=== PATIENT | male | born 1980 | race Caucasian/White ===

== ENCOUNTER 2017-04-28 15:16 | Emergency (ER) | payer BC ==
[2017-04-28] MEDS ORDERED: Morphine INJ* 4 MG/ML 1 ML CARPUJECT IV ONE ×2 (15:56→16:46)
[2017-04-28] MEDS ORDERED: Ondansetron INJ* 2 MG/ML VIAL IV ONE (15:56)
[2017-04-28] MEDS ORDERED: Iohexol 300* (CONTRAST) 10 ML SDV IV ONE ×2 (15:57→16:09)
[2017-04-28 15:59] LABS: Hematocrit 40 % (42-52); Hemoglobin 13.7 g/dl (14.0-18.0); Mean Corpuscular HGB Conc 35 g/dl (31-36); Mean Corpuscular Hemoglobin 31 pg (27-31); Mean Corpuscular Volume 88 fL (80-94); Mean Platelet Volume 8 um3 (7.4-10.4); Red Cell Distribution Width 13 % (10.5-15); White Blood Count 10.3 10^3/ul (3.5-10.8)
[2017-04-28 16:13] LABS: Albumin 4.4 g/dL (3.2-5.2); BUN/Creatinine Ratio 19.4 (8-20); Calcium 9.1 mg/dL (8.6-10.3); EGFR African American 118.9 (>60); EGFR Non-African American 92.5 (>60); Globulin 2.5 g/dL (2-4); Potassium 3.9 mmol/L (3.5-5.0); Total Bilirubin 0.3 mg/dL (0.2-1.0); Total Protein 6.9 g/dL (6.4-8.9)
--- NOTE | 2017-04-28 16:15 | RAD ---
HISTORY: Trauma, chest pain COMPARISONS: None VIEWS: 1: frontal portable view of the chest at 4:07 PM FINDINGS: LINES AND TUBES: None. CARDIOMEDIASTINAL SILHOUETTE: The cardiomediastinal silhouette is normal for portable technique. PLEURA: The costophrenic angles are sharp. No pleural abnormalities are noted. LUNG PARENCHYMA: The lung volumes are low. The lungs are clear accounting for the phase of respiration. ABDOMEN: The upper abdomen is clear. There is no subphrenic gas. BONES AND SOFT TISSUES: No bone or soft tissue abnormalities are noted. IMPRESSION: LOW LUNG VOLUMES. NO ACTIVE CARDIOPULMONARY DISEASE.
--- NOTE | 2017-04-28 16:44 | RAD ---
HISTORY: Chest pain, back pain, fall COMPARISONS: MRI of the cervical spine dated September 14, 2015 TECHNIQUE: Multiple contiguous axial CT scans were obtained of the cervical spine without intravenous contrast, with coronal and sagittal multiplanar reformations. FINDINGS: BRAIN: The visualized brain is unremarkable CENTRAL CANAL: Evaluation of the central canal is limited on CT technique; however, there is no obvious canalicular mass or epidural hemorrhage. ALIGNMENT: There is a mild levoscoliotic curvature of the spine which may be positional. The alignment is otherwise normal. VERTEBRAL BODIES: The odontoid process is intact. The atlantoaxial intervals are symmetric. The vertebral bodies are normal in attenuation, without fracture. JOINTS: There is no subluxation or dislocation. There is mild uncovertebral and facet hypertrophic change. MUSCULATURE: Unremarkable INTERVERTEBRAL DISCS: There is diffuse loss of intervertebral disc height. AXIAL IMAGES: C2-C3: There is no osseous neural foraminal narrowing or central canal stenosis. C3-C4: There is mild left neural foraminal narrowing secondary to uncovertebral atrophy. There is no osseous central canal stenosis. C4-C5: There is no osseous neural foraminal narrowing or central canal stenosis. C5-C6: There is bilateral uncovertebral hypertrophy. There is moderate bilateral neural foraminal narrowing. There is no osseous central canal stenosis. C6-C7: There is no osseous neural foraminal narrowing or central canal stenosis. C7-T1: There is no osseous neural foraminal narrowing or central canal stenosis. SOFT TISSUES: The visualized soft tissues of the neck are unremarkable. The prevertebral fat stripe is preserved. OTHER: None. IMPRESSION: MILD DEGENERATIVE CHANGES. NO ACUTE OSSEOUS INJURY TO THE CERVICAL SPINE.
[2017-04-28] MEDS ORDERED: Morphine INJ* 4 MG/ML 1 ML CARPUJECT ONE (16:46)
--- NOTE | 2017-04-28 16:56 | RAD ---
HISTORY: Epigastric pain, chest pain, shortness of breath, trauma COMPARISONS: CT of the abdomen and pelvis dated April 10, 2012 TECHNIQUE: Multiple contiguous axial CT scans were obtained of the chest, abdomen, and pelvis after the administration of intravenous contrast. Coronal and sagittal multiplanar reformations are submitted for review.. Oral contrast was not administered. Delayed images were obtained through the abdomen and pelvis. FINDINGS: CHEST NECK AND THYROID: The lower neck and thyroid are unremarkable. CHEST WALL: There is no lower cervical, axillary, or supraclavicular lymphadenopathy by size criteria. HEART AND PERICARDIUM: The heart is unremarkable. AORTA AND PULMONARY VASCULATURE: The aorta and pulmonary vasculature are normal. MEDIASTINUM: There is no mediastinal lymphadenopathy by size criteria. ELI: There is no hilar lymphadenopathy by size criteria. AIRWAY AND ESOPHAGUS: The airway is unremarkable, without endobronchial filling defect. The esophagus is grossly normal. LUNG PARENCHYMA: The lungs are clear. PLEURA: No pleural abnormalities are noted. BONES AND SOFT TISSUES: No bone or soft tissue abnormalities are noted. ABDOMEN/PELVIS: LIVER: The liver measures 20 cm in long axis. The liver is homogeneous in attenuation without perihepatic fluid collection. BILE DUCTS: There is no intrahepatic or extrahepatic biliary dilatation. GALLBLADDER: The gallbladder is normal, without pericholecystic inflammatory change. PANCREAS: The pancreas is normal, without mass or ductal dilatation. SPLEEN: Normal in size and appearance. UPPER GI TRACT: Evaluation of the gastrointestinal tract is limited by incomplete gastric distention. The upper GI tract is unremarkable. SMALL BOWEL \T\ MESENTERY: The small bowel is normal in contour, course, and caliber. There is no obstruction or dilatation. COLON: The colon is normal in contour, course, caliber. There is no pericolonic inflammatory change. ADRENALS: Normal bilaterally. KIDNEYS: The kidneys are normal in shape, size, contour, and axis. There is no hydronephrosis or nephrolithiasis. BLADDER: The bladder is smooth in contour. PELVIC ORGANS: The prostate gland is normal. The seminal vesicles are symmetric. AORTA: The aorta is normal. IVC: Unremarkable LYMPH NODES: There is no lymphadenopathy by size criteria. ABDOMINAL WALL: There is no evidence for abdominal wall hernia. BONES AND SOFT TISSUES: Unremarkable OTHER: There is no free intraperitoneal fluid or free intraperitoneal gas. There is no active arterial sterilization. IMPRESSION: NO ACUTE CT PATHOLOGY OF THE VISUALIZED CHEST, ABDOMEN, OR PELVIS. MILD HEPATOMEGALY.
[2017-04-28] MEDS ORDERED: HYDROmorphone INJ* 1 MG/ML CARPUJECT SYRINGE IV SLOW PU ONE ×2 (17:39→19:32)
[2017-04-28] MEDS ORDERED: HYDROmorphone INJ* 2 MG/ML CARPUJECT SYRINGE IV SLOW PU ONE (18:26)
--- NOTE | 2017-04-28 18:36 | ED ---
Kana Gibson SooYoung, scribed for Apolinar Luna MD on 04/28/17 at 1558 . 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 Pt was on his tractor when it rolled onto its side, so he jumped off. He states he did a "belly flop" and landed on the ground. He was not pinned by the tractor. CP is described as sharp, radiating to in between his shoulder blades, R side worse than L. Associated sx: SOB secondary to CP. Denies head trauma, LOC , abd pain, low back pain, extremity tingling. Aggravating factors: breathing. Neck pain at baseline. Denies cardiac PMHx. Takes hydrocodone. PCP is in [place]. 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 - Mechanism of Injury: Fall Onset/Duration: Started Hours Ago, Traumatic, Still Present Onset of Pain: Immediate, Post Accident, Prior to Arrival Current Severity: Severe Pain Intensity: 10 Pain Scale Used: 0-10 Numeric Location: Chest, Radiates to: - back, shoulder blades Aggravating Factor(s): Movement, Deep Breaths Associated Signs & Symptoms: Positive: SOB, Painful Respirations, Other: - pos: diaphoresis; neg: head trauma, LOC, low back pain, extremity tingling - Allergy/Home Medications Allergies/Adverse Reactions: Allergies Allergy/AdvReac Type Severity Reaction Status Date / Time Penicillins [PCN] Allergy Unknown Unknown Verified 09/09/15 14:35 Reaction Details HAYFEVER Allergy SNEEZE, Uncoded 08/13/15 13:31 CONGESTION PMH/Surg Hx/FS Hx/Imm Hx Previously Healthy: No Endocrine/Hematology History: Denies: Hx Diabetes, Hx Sickle Cell Disease Cardiovascular History: Denies: Hx Hypertension, Hx Pacemaker/ICD Respiratory History: Reports: Hx Asthma - MILD, OCCASSIONAL Sx, NO MEDS GI History: Reports: Hx Gastroesophageal Reflux Disease History: Denies: Hx Dialysis, Hx Renal Disease Musculoskeletal History: Reports: Hx Arthritis - LEFT WRIST Sensory History: Reports: Hx Contacts or Glasses - GLASSES Denies: Hx Hearing Aid Opthamlomology History: Reports: Hx Contacts or Glasses - GLASSES Neurological History: Denies: Other Neuro Impairments/Disorders Psychiatric History: Reports: Hx Anxiety - ON DAILY MEDS, Hx Depression Denies: Hx Panic Disorder - Surgical History Surgery Procedure, Year, and Place: 2010 RIGHT WRIST CARPAL TUNNEL RELEASE, [facility]. 2012 RIGHT WRIST TFC REPAIR X 2, REMOVE GANGLION CYST AND PIECE OF CARTLILAGE, [place], LEFT WRIST SURGERY-09/2012. 03/04 - LEFT WRIST SURGERY Hx Anesthesia Reactions: No Infectious Disease History: Yes Infectious Disease History: Reports: Hx Hepatitis Denies: Traveled Outside the [place] in Last 30 Days - Family History Known Family History: Positive: Other - neg: anasthesia reaction - Social History Occupation: Employed Full-time Lives: With Family Alcohol Use: Occasionally Hx Substance Use: No Substance Use Type: Reports: None Hx Tobacco Use: Yes Smoking Status (MU): Former Smoker Amount Used/How Often: 1/2 PPD X 7-8 YEARS Review of Systems All Other Systems Reviewed And Are Negative: Yes Physical Exam - Summary Physical Exam Summary: Constitutional: Well-developed, Well-nourished, Alert, Cooperative Skin: Warm, Dry HENT: Normocephalic; No Racoons eyes; No battles sign; No abrasion; No contusion ; No hemotympanum; No maxilla facial tenderness or instability; Dentition are smooth; No dental trauma; No trismus Eyes: EOM normal, PERRL Neck: Trachea is midline. No stridor; No JVD; No step off; No posterior cervical spine tenderness Cardio: Rhythm regular, rate normal Heart sounds normal; Intact distal pulses; The pedal pulses are 2+ and symmetric. Radial pulses are 2+ and symmetric. Pulmonary/Chest wall: Diminished breath sounds on R; poor inspiration; Equal chest rise; No flail segment; No rib tenderness; Exquisite sternal tenderness Abd: Soft, Appearance normal. No distension; Exquisite epigastric tenderness; No palpable pulsatile mass; No Cullens sign; No Burt-Turners sign Musculoskeletal: Full ROM and no tenderness at hips, ankles, shoulders, elbows and knees; No joint swelling; No vertebral body tenderness; No paraspinal tenderness; No step off or deformity of the spine; Pelvis is stable to lateral compression and rock Neuro: Alert, Oriented x3, Strength 5/5 all extremities. : No blood at urethral meatus Psych: Mood and affect Normal Triage Information Reviewed: Yes Vital Signs On Initial Exam: Initial Vitals Temp Pulse Resp BP Pulse Ox 96.6 F 59 10 138/86 98 04/28/17 15:27 04/28/17 15:27 04/28/17 15:27 04/28/17 15:27 04/28/17 15:27 Vital Signs Reviewed: Yes Diagnostics - Vital Signs Vital Signs Temp Pulse Resp BP Pulse Ox 04/28/17 15:27 96.6 F 59 10 138/86 98 - Laboratory Lab Results: Lab Results 04/28/17 04/28/17 04/28/17 Range/Units 15:49 15:49 15:49 WBC 10.3 (3.5-10.8) 10^3/ul RBC 4.50 (4.0-5.4) 10^6/ul Hgb 13.7 L (14.0-18.0) g/dl Hct 40 L (42-52) % MCV 88 (80-94) fL MCH 31 (27-31) pg MCHC 35 (31-36) g/dl RDW 13 (10.5-15) % Plt Count 252 (150-450) 10^3/ul MPV 8 (7.4-10.4) um3 Neut % (Auto) 66.2 (38-83) % Lymph % (Auto) 25.4 (25-47) % [place] % (Auto) 7.1 (1-9) % Eos % (Auto) 0.7 (0-6) % Baso % (Auto) 0.6 (0-2) % Absolute Neuts (auto) 6.8 (1.5-7.7) 10^3/ul Absolute Lymphs (auto) 2.6 (1.0-4.8) 10^3/ul Absolute Monos (auto) 0.7 (0-0.8) 10^3/ul Absolute Eos (auto) 0.1 (0-0.6) 10^3/ul Absolute Basos (auto) 0.1 (0-0.2) 10^3/ul Absolute Nucleated RBC 0 10^3/ul Nucleated RBC % 0 Sodium 139 (133-145) mmol/L Potassium 3.9 (3.5-5.0) mmol/L Chloride 105 (101-111) mmol/L Carbon Dioxide 28 (22-32) mmol/L Anion Gap 6 (2-11) mmol/L BUN 18 (6-24) mg/dL Creatinine 0.93 (0.67-1.17) mg/dL Est GFR ( Amer) 118.9 (>60) Est GFR (Non-Af Amer) 92.5 (>60) BUN/Creatinine Ratio 19.4 (8-20) Glucose 90 (70-100) mg/dL Lactic Acid 2.0 (0.5-2.0) mmol/L Calcium 9.1 (8.6-10.3) mg/dL Total Bilirubin 0.30 (0.2-1.0) mg/dL AST 15 (13-39) U/L ALT 17 (7-52) U/L Alkaline Phosphatase 53 (34-104) U/L Total Protein 6.9 (6.4-8.9) g/dL Albumin 4.4 (3.2-5.2) g/dL Globulin 2.5 (2-4) g/dL Albumin/Globulin Ratio 1.8 (1-3) Blood Type Antibody Screen 04/28/17 Range/Units 15:49 WBC (3.5-10.8) 10^3/ul RBC (4.0-5.4) 10^6/ul Hgb (14.0-18.0) g/dl Hct (42-52) % MCV (80-94) fL MCH (27-31) pg MCHC (31-36) g/dl RDW (10.5-15) % Plt Count (150-450) 10^3/ul MPV (7.4-10.4) um3 Neut % (Auto) (38-83) % Lymph % (Auto) (25-47) % [place] % (Auto) (1-9) % Eos % (Auto) (0-6) % Baso % (Auto) (0-2) % Absolute Neuts (auto) (1.5-7.7) 10^3/ul Absolute Lymphs (auto) (1.0-4.8) 10^3/ul Absolute Monos (auto) (0-0.8) 10^3/ul Absolute Eos (auto) (0-0.6) 10^3/ul Absolute Basos (auto) (0-0.2) 10^3/ul Absolute Nucleated RBC 10^3/ul Nucleated RBC % Sodium (133-145) mmol/L Potassium (3.5-5.0) mmol/L Chloride (101-111) mmol/L Carbon Dioxide (22-32) mmol/L Anion Gap (2-11) mmol/L BUN (6-24) mg/dL Creatinine (0.67-1.17) mg/dL Est GFR ( Amer) (>60) Est GFR (Non-Af Amer) (>60) BUN/Creatinine Ratio (8-20) Glucose (70-100) mg/dL Lactic Acid (0.5-2.0) mmol/L Calcium (8.6-10.3) mg/dL Total Bilirubin (0.2-1.0) mg/dL AST (13-39) U/L ALT (7-52) U/L Alkaline Phosphatase (34-104) U/L Total Protein (6.4-8.9) g/dL Albumin (3.2-5.2) g/dL Globulin (2-4) g/dL Albumin/Globulin Ratio (1-3) Blood Type A Positive Antibody Screen Negative Result Diagrams: 04/28/17 15:49 04/28/17 15:49 Lab Statement: Any lab studies that have been ordered have been reviewed, and results considered in the medical decision making process. - Radiology CXR Xray Interpretation: Positive (See Comments) - IMPRESSION: Low lung volumes. No active cardiopulmonary dz. ED physician has reviewed this radiology report and agrees Radiology Interpretation Completed By: Radiologist - CT C-SPINE CT Interpretation: No Acute Changes - IMPRESSION: Mild degenerative changes. No acute osseous injury to C-spine. ED physician has reviewed this radiology report and agrees CT Interpretation Completed By: Radiologist C/A/P CT CT Interpretation: Positive (See Comments) - IMPRESSION: NO ACUTE CT PATHOLOGY OF THE VISUALIZED CHEST, ABDOMEN, OR PELVIS. MILD HEPATOMEGALY. ED physician has reviewed this radiology report, and consulted with radiologist, and reviewed sagittal images and agreed upon sternal fx present, see consult notes and addendum in meditech. CT Interpretation Completed By: Radiologist - EKG 1656 Cardiac Rate: Bradycardia - 57 bpm EKG Rhythm: Sinus Bradycardia ST Segment: Normal - no STEMI, less than 1mm diffuse ST elevations Re-Evaluation - Re-Evaluation 1 Re-Evaluation Time: 16:54 Change: Unchanged Comment: Discussing imaging results with pt and family. 2 Re-Evaluation Time: 17:38 Change: Worse Comment: Discussing results with pt, and plan to transfer. Pain has returned, is in 9/10 pain, and taking shallow breaths. 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 Pt was on his tractor when it rolled onto its side, so he jumped off. He states he did a "belly flop" and landed on the ground. He was not pinned by the tractor. CP is described as sharp, radiating to in between his shoulder blades, R side worse than L. Associated sx: SOB secondary to CP. Denies head trauma, LOC, abd pain, low back pain, extremity tingling. Aggravating factors: breathing. Neck pain at baseline. Denies cardiac PMHx. Takes hydrocodone. PCP is in [place]. Pt given morphine, zofran, dilauded in ED. Bloodwork is without significant abnormality. Due to pt's sternal fx and diffuse ST elevation, will transfer to [facility] trauma center. - Diagnoses Provider Diagnoses: Sternal fracture, Cardiac contusion - Physician Notifications Discussed Care Of Patient With: Gordo Malik - radiology Time Discussed With Above Provider: 17:33 Instructed by Provider To: Other - Reviewing imaging, agrees with sternal fx. - Critical Care Time Critical Care Time: 30-74 min - 45 minutes Discharge - Discharge Plan Condition: Stable Disposition: TRANS HIGHER LVL OF CARE FAC Discharge Disposition Comment: to [facility] Referrals: Louie Cuevas MD [Primary Care Provider] - Consult Consult: 1750: Consult with Dr. Jaramillo, [facility] Will accept pt for transfer. The documentation as recorded by the Kana dickens SooYoung accurately reflects the service I personally performed and the decisions made by me, Apolinar Luna MD.
[2017-04-28 20:33] VITALS: BP 129/93
[2017-04-28] MEDS ORDERED: HYDROmorphone INJ* 1 MG/ML CARPUJECT SYRINGE ONE (21:54)
== END 2017-04-28 22:00 | disposition short-term general hospital (02) ==
LOC: ED 15:16
DX: S22.22XA Fracture of body of sternum, initial encounter for closed fracture (principal); W30.89XA Contact with other specified agricultural machinery, initial encounter; Y92.9 Unspecified place or not applicable; F41.9 Anxiety disorder, unspecified; J45.909 Unspecified asthma, uncomplicated; F32.9 Major depressive disorder, single episode, unspecified; Z87.891 Personal history of nicotine dependence; S26.91XA Contusion of heart, unspecified with or without hemopericardium, initial encounter; R16.0 Hepatomegaly, not elsewhere classified
CPT/HCPCS: 36415; 71010; 71260; 72125; 74177; 80053; 83605; 85025; 86850; 86900; 86901; 93005; 96374; 96375; 96376; 99285; J1170; J2270; J2405; Q9967

== ENCOUNTER 2019-06-12 11:01 | Observation (INO) | payer BC ==
[~2019-06-12 11:01] MED LIST: Acetaminophen TAB* 325 MG PO ONE; Buffered Lidocaine 1% SYRIN* 1 ML/SYRINGE INTRADERM ONE; Lactated Ringers 1000 ML Bag* 1,000 ML IV SCH; Midazolam* 1 MG/ML 2 ML VIAL (2 MG) ONE; Rocuronium* 10 MG/ML VIAL ONE
[2019-06-12] MEDS ORDERED: Acetaminophen TAB* 325 MG ONE (11:27)
[2019-06-12] MEDS ORDERED: Clindamycin 900 MG/D5W BAG(*) 900 MG/50 ML BAG IVPB ONE (11:28)
[2019-06-12] MEDS ORDERED: Lidocaine 2% PF* 10 ML AMP ONE (11:44)
[2019-06-12] MEDS ORDERED: Propofol* 10 MG/ML 20 ML BTL ONE ×2 (11:44→14:10)
[2019-06-12] MEDS ORDERED: EPINEPHRINE 1 MG/ML 1 ML VIAL ONE (12:10)
[2019-06-12] MEDS ORDERED: Bupivacaine 0.25% EPI 200,000* 30 ML SDV ONE (12:11)
[2019-06-12] MEDS ORDERED: fentaNYL* 50 MCG/ML 5 ML VIAL (250 MCG VIAL) ONE (12:19)
[2019-06-12] MEDS ORDERED: ROPIVACAINE 5 MG/ML 30 ML BTL (0.5%) ONE (12:44)
[2019-06-12] MEDS ORDERED: Neostigmine Methylsulfate* 3 MG/3 ML SYRINGE ONE (14:13)
[2019-06-12] MEDS ORDERED: Ketorolac INJ* 30 MG/ML 1 ML VIAL IV PRN (14:13)
[2019-06-12] MEDS ORDERED: oxyCODONE TAB* 5 MG TAB PO PRN (14:13)
[2019-06-12] MEDS ORDERED: Ondansetron INJ* 2 MG/ML VIAL ONE (14:13)
[2019-06-12] MEDS ORDERED: diPHENhydraMINE IV* 50 MG/ML 1 ml VIAL (BENADRYL) IV PRN ×2 (14:13→16:49)
[2019-06-12] MEDS ORDERED: HYDROmorphone INJ1* 1 MG/ML SYRINGE IV PRN (14:13)
[2019-06-12] MEDS ORDERED: PROCHLORPERAZINE INJ 5 MG/ML 2 ML VIAL IV PRN (14:13)
[2019-06-12] MEDS ORDERED: Naloxone* 0.4 MG/ML 1 ML VIAL IV PRN (14:13)
[2019-06-12] MEDS ORDERED: Glycopyrrolate IV* 0.2 MG/ML 1 ML VIAL ONE (14:13)
[2019-06-12] MEDS ORDERED: Albuterol 2.5 MG/3 ML NEB.SOL* (0.083%) INH ONE ×2 (14:33→15:03)
[2019-06-12] MEDS ORDERED: Magnesium Hydroxide LIQ* 30 ML UDC PO PRN (16:49)
[2019-06-12] MEDS ORDERED: traMADol TAB* 50 MG PO PRN (16:49)
[2019-06-12] MEDS ORDERED: Ondansetron INJ* 2 MG/ML VIAL IV PRN (16:49)
[2019-06-12] MEDS ORDERED: Cyclobenzaprine TAB* 10 MG PO PRN (16:49)
[2019-06-12] MEDS ORDERED: Morphine INJ* 2 MG/ML 1 ML SYRINGE (TWO MG - NEW SYRINGE VERSION) IV PRN (16:49)
[2019-06-12] MEDS ORDERED: Ondansetron ODT TAB* 4 MG PO PRN (16:49)
[2019-06-12] MEDS ORDERED: diPHENhydraMINE PO* 25 MG PO PRN (16:49)
[2019-06-12] MEDS ORDERED: Albuterol 2.5 MG/3 ML NEB.SOL* (0.083%) INH PRN (16:59)
[2019-06-12] MEDS ORDERED: Citalopram TAB* 10 MG PO SCH ×2 (18:00→21:00)
[2019-06-12] MEDS: Lactated Ringers 1000 ML Bag* 1,000 ML IV SCH (18:15)
[2019-06-12] MEDS: Magnesium Hydroxide LIQ* 30 ML UDC PO SCH (20:22)
[2019-06-12] MEDS: Docusate CAP* 100 MG PO SCH (20:22)
[2019-06-12] MEDS: oxyCODONE TAB* 5 MG TAB PO PRN (20:23)
--- NOTE | 2019-06-12 20:39 | OP ---
DATE OF OPERATION: 06/12/19 - ROOM #352 DATE OF : 82 SURGEON: Chaz Cam MD [facility]: Miriam Rivers RPA ANESTHESIA: Regional and general endotracheal. PRE-OP DIAGNOSIS: Right shoulder rotator cuff tear. POST-OP DIAGNOSIS: Partial thickness rotator cuff tear. OPERATIVE PROCEDURE: 1. Right shoulder arthroscopy. 2. Debridement. 3. Subacromial decompression. ESTIMATED BLOOD LOSS: Negligible. COMPLICATIONS: None. SUMMARY: Mr. Scott is a 38-year-old male who has had continued troubles with right shoulder pain. He underwent an MRI earlier this year, which showed a near full thickness tear of the distal supraspinatus tendon. He has had continued troubles with more shoulder pain over the past few months and we had previously discussed shoulder arthroscopy. He had done physical therapy, exercising, NSAIDs and even injections and while some of these had given him good short-term relief, he has been having more troubles with the shoulder. Risks of surgery such as infection, scar formation, stiffness, continued pain were some of the risks discussed. He had wished to proceed. DESCRIPTION OF PROCEDURE: The patient had a block placed in the holding area and was brought back to the OR. General endotracheal anesthesia was established. He was then sat up in the beach chair position. Care was taken to make sure that his left elbow was nice and clear so that the cubital tunnel would not be impinged upon. Right shoulder area was prepped and then draped. Portal sites were pre-injected using 0.25% Marcaine with epinephrine and standard posterior portal was made first using an 11 blade. Blunt trocar with the sheath was easily introduced into the shoulder and a camera was introduced into the sheath. Shoulder was allowed to insufflate. On pulling back, glenohumeral joint was nicely visualized. It could be seen we had some very specific damage on the infraspinatus tendon as well as significant fraying along the anterior labrum. Under direct vision using outside-in technique, anterior portal was established and probe was introduced. Labrum was nicely attached and coming over the top side of the humeral head, I did not see any detachment of the rotator cuff. This was probed and pictures were taken. Shaver was introduced and used to gently debride the tear on the infraspinatus tendon as well as all the fraying along the infraspinatus. Underside of the rotator cuff with the synovium was also gently debrided to make sure that there was not another tear that might be missed. Probe was reintroduced and biceps tendon was hooked and delivered and biceps tendon was in pristine condition. Coming down into the pouch, no loose bodies were seen and again he appeared to be in excellent shape. Final pictures were taken and shoulder joint was exited and subacromial space was entered. Thickened, red, inflamed bursa was present. Lateral portal was made and shaver was used in both anterior and lateral portals to clear out the bursa and clean the underside of the acromion. Once I could see from his AC joint to the lateral border of the acromion, jazmine was then used to perform a decompression. Pictures were taken. Trying to switching the scope to the lateral portal and bringing the probe in to again try and look for a tear of the rotator cuff, none was found. All instrumentation was removed and portal sites were closed using 4-0 nylon sutures. Sterile dressing and a sling were applied in the OR. The patient was extubated in the OR and was stable on transfer to the recovery room. DISPOSITION/DISCHARGE SUMMARY: Mr. Scott is a 38-year-old male who just underwent a right shoulder arthroscopy. He tolerated the procedure well. There were no complications. He is still being woken up in the OR and will reach recovery room shortly. Once he can tolerate p.o., his pain well controlled, can void, he will be discharged home. Prescription for [place] will be e-scribed in. He has instructions to keep his dressing clean, dry and intact for the next 3 days, but after that may take his dressing down, cover sutures with bandage, may shower, wash and get it wet, but should not soak it. I would like to see him in the office in 13 days to remove his sutures and make sure he is doing well. If there are any problems or if anything odd should occur, there are instructions to give the office a call. [id number]/[facility] #: [id number] SANDI
[2019-06-12] MEDS: Acetaminophen TAB* 325 MG PO SCH (21:45)
[2019-06-12] MEDS: Ketorolac INJ* 30 MG/ML 1 ML VIAL IV PRN (23:54)
[2019-06-13] MEDS: oxyCODONE TAB* 5 MG TAB PO PRN ×3 (00:42→09:23)
[2019-06-13] MEDS: Lactated Ringers 1000 ML Bag* 1,000 ML IV SCH (04:11)
[2019-06-13] MEDS: Acetaminophen TAB* 325 MG PO SCH (05:07)
[2019-06-13 06:39] LABS: Hematocrit 36 % (42-52); Hemoglobin 12.3 g/dL (14.0-18.0); Mean Platelet Volume 7.9 fL (7.4-10.4); Platelet Count 227 10^3/uL (150-450)
[2019-06-13 07:07] LABS: BUN/Creatinine Ratio 21.9 (8-20); Calcium 8.7 mg/dL (8.6-10.3); EGFR African American 106.6 (>60); EGFR Non-African American 88.1 (>60); Potassium 4.2 mmol/L (3.5-5.0)
[2019-06-13] MEDS ORDERED: Pantoprazole TAB * 40 MG TAB PO SCH (09:00)
[2019-06-13] MEDS ORDERED: Cetirizine* 10 MG TAB PO SCH (09:00)
[2019-06-13] MEDS ORDERED: Vitamin THERAPEUTIC TAB PO SCH (09:00)
[2019-06-13] MEDS: Docusate CAP* 100 MG PO SCH (09:23)
[2019-06-13] MEDS: Magnesium Hydroxide LIQ* 30 ML UDC PO SCH (09:23)
[2019-06-13] MEDS: Ketorolac INJ* 30 MG/ML 1 ML VIAL IV PRN (09:24)
[2019-06-13 11:29] VITALS: BP 147/76
--- NOTE | 2019-06-13 12:09 | DS ---
Orthopedic Discharge Summary - Discharge Summary Date of Admission:06/12/19 Date of Discharge: 06/13/2019 Date of Surgery: 06/12/2019 Attending Orthopedic Provider: Dr. Cam Pre-operative Diagnosis: Right shoulder possible rotator cuff tear vs subacromial bursitis Operative Procedure: Right shoulder arthroscopy, debridement, subacromial decompression Disposition of Patient: home Condition of Patient: good History: SARAH CALERO is a 38 year old M with years of increasingly severe right shoulder pain and weakness. Patient has failed conservative management and has elected to undergo a right shoulder artrhoscopy. Hospital Course: SARAH was admitted to [facility] on 06/12/19. Patient underwent a Right shoulder arthroscopy, debridement, subacromial decompression. He did develop broncospasms in PACU and transfer to the Short Stay Surgical Unit on O2 with continuous monitoring. Post-op day 1: patient was alert and in no acute distress. Dressing was clean, dry and intact. Operative extremity showed fingers with full ROM, sensation intact to light touch distally , DP2+. He was able to be 98% O2 sat on room air for 4 hours without issue. Patient was deemed to be medically and orthopedically stable for discharge. Home Medications Medication Instructions Recorded Confirmed Type Omeprazole 20 mg PO QAM 10/16/12 06/12/19 History Citalopram TAB* [Celexa TAB*] 10 mg PO QPM 02/27/13 06/12/19 History Cetirizine* [ZyrTEC 10 MG TAB*] 10 mg PO QAM 04/03/13 06/12/19 History Ibuprofen [Advil Liqui-Gels] 600 mg PO Q6H PRN 04/03/13 06/12/19 History Multivitamin [Multivitamins] 1 tab PO QAM 06/26/14 06/12/19 History oxyCODONE/Acetamin 5/325 MG* 1 tab PO QPM 06/26/14 06/12/19 History [Percocet 5/325 TAB*] HYDROcodone/ACETAMIN 5-325 MG* 2 tab PO Q8H PRN #56 tab MDD 6 06/12/19 Rx [[place] 5-325 TAB*] Discharge Instructions following Orthopedic Surgery: Activity: * Weight Bearing as tolerated * Continue physical therapy and occupational therapy exercises as shown Wound care: * OK to shower on post-op day 3, no bathing, swimming, or submerging wound. * Use gentle soap, pat dry. Cover with gauze, SANTY wrap or tape. Call Orthopedic office for: * Increased drainage * Redness * Increased pain * Fever Go to ER with shortness of breath or chest pain. Diet: * Regular diet * Increase fluids and fiber to prevent constipation. * Continue to use stool softeners, call office if no bowel motion within 48 hours. Medications See Home Medication List in your packet for medications that you should take after discharge. Pain Control: [place] Dosin/325 mg 1-2 tabs by mouth every 8 hours as needed for pain. Maximum of 10 tabs per day. Ibuprofen 600 mg 3 times a day as needed Please note that [place] contains Tylenol (acetaminophen). Maximum daily dose of Tylenol is 4000 mg from all sources. Antibiotics are required prior to any dental work. FOLLOW UP: Follow up with [[facility]] Within 10-14 days, call for appointment Please call our office with any questions or concerns ([phone])
== END 2019-06-13 12:30 | disposition home or self-care (01) ==
LOC: OR 11:01 → SSU 16:49
PROVIDERS: ADMIT Orthopaedic Surgery; ATTEND Orthopaedic Surgery
DX: M19.011 Primary osteoarthritis, right shoulder (principal); M75.41 Impingement syndrome of right shoulder; M75.121 Complete rotator cuff tear or rupture of right shoulder, not specified as traumatic; F41.9 Anxiety disorder, unspecified; M19.032 Primary osteoarthritis, left wrist; M19.031 Primary osteoarthritis, right wrist; Z87.891 Personal history of nicotine dependence; J98.01 Acute bronchospasm
CPT/HCPCS: 36415; 71045; 80048; 83520; 85014; 85018; 85049; 96361; 96374; 96376; A9270-GY; G0378; J1885; J2001; J2250; J2405; J2704; J2710; J2795; J3010